=== PATIENT | female | born 1940 | race Caucasian/White ===

== ENCOUNTER 2023-04-26 12:51 | Emergency (ER) | payer MEDICARE, SELFPAY ==
[2023-04-26 12:58] VITALS: BP 202/93
--- NOTE | 2023-04-26 15:12 | ED.GENMED ---
History of Present Illness
<Aparna Sheikh PA-C - Last Filed: 04/26/23 19:35>
General
Chief Complaint: Abdominal Pain
Source: patient
Exam Limitations: none
Time Seen by Provider: 04/26/23 14:40
Nursing documentation reviewed up to this point in time: agreed with
Travel History
Have you had any contact with someone who has COVID-19?: No
Do you have any symptoms of coronavirus? Fever > 100 degrees, chills, cough, shortness of breath, sore throat, loss of taste or smell, muscle aches, or headache?: No
History of Present Illness
History of Present Illness:
This is a 83-year-old female with a past medical history of GERD, gallstones, hypertension, hypothyroidism, recurrent UTIs who presents emergency department today with right upper quadrant pain that radiates to the right upper back for the past 7
days. Patient reports that when it started, she thought that it was nothing but then the pain worsened and she decided to come in today. She states that the pain is intermittent and is worse with movement. She denies chest pain, shortness of
breath, nausea, vomiting, fevers, chills. She is able to eat and drink without difficulty. The pain is not related to eating. She has never had anything like this before. Of note, she is currently being treated for UTI with Macrobid and still
has urinary symptoms. She does see a urologist for recurrent bladder infections and pelvic floor problems, and her urologist did want an ultrasound of the bladder and kidneys.
Past History
<Aparna Sheikh PA-C - Last Filed: 04/26/23 19:35>
Past History
ED Past Medical History: Arrthythmia (a-fib), GERD, Hypothyroidism and Other (UTI, PNA, Sinusitis)
ED Past Surgical History: Gynecological and Other (sinus)
Social History
Tobacco: Non-smoker
Alcohol: None
Drug: None
Living: with family
Review of Systems
<Aparna Sheikh PA-C - Last Filed: 04/26/23 19:35>
Review of Systems
All Other Systems: ROS reviewed and negative except as documented in HPI and ROS
Phy Exam
<Aparna Sheikh PA-C - Last Filed: 04/26/23 19:35>
Physical Exam
Physical Exam:
General: patient is well appearing and in no acute distress
Skin: warm and dry, no rashes or lesions
Cardiac: regular rate and rhythm, no murmurs
Pulm: normal respiratory effort, no wheezes, rales, or rhonci
Abdomen: No abdominal distension. Mild tenderness to palpation of the right upper abdominal quadrant. Negative reynolds's sign.
Musculoskeletal: No tenderness to palpation of the thoracic or lumbar spine.
Course
<ELINA Peña Last Filed: 04/26/23 19:35>
Orders/Labs/Results
Orders:
Orders
04/26/23 15:16
Acetaminophen [Tylenol] 325 mg PO NOW STA
US Abdomen Complete/Upper Urgent
Reason For Exam: Right upper quadrant pain
US Kidneys and US Bladder [US Renal With Bladder] Urgent
Comment:
Reason For Exam: flank pain, UTI symptoms
04/26/23 15:30
Complete Blood Count/With Diff Urgent
Comprehensive Metabolic Panel Urgent
Lipase Urgent
Urinalysis Reflex To Culture Urgent
Date Specimen was Collected: 04/26/23
Time Specimen was Collected: 13:02
Urine Microscopic Reflex Cult Urgent
Urine Culture Urgent
ROC Source: U
Specimen Description:
Date Specimen was Collected: 04/26/23
Time Specimen was Collected: 13:02
Abnormal Lab Results
04/26/23
15:30
MPV 10.7 H fL
(7.4-10.4)
Sodium 134 L mmol/L
(135-145)
Creatinine 0.5 L mg/dL
(0.6-1.0)
Glucose 111 H mg/dl
(70-99)
Urine Nitrite (Reflex) Positive A
(Negative)
Urine Bilirubin 1+ A
(Negative)
Urine Bacteria (Reflex) Few A
(Negative)
04/26/23 15:30
04/26/23 15:30
Vital Signs
Initial and Last Documented VS:
Initial Vital Signs
Temp Pulse Resp BP Pulse Ox
97.6 F 66 22 202/93 98
04/26/23 12:58 04/26/23 12:58 04/26/23 12:58 04/26/23 12:58 04/26/23 12:58
Last Documented Vital Signs
Temp Pulse Resp BP Pulse Ox
97.6 F 66 22 160/68 97
04/26/23 12:58 04/26/23 12:58 04/26/23 12:58 04/26/23 16:48 04/26/23 17:00
<Jorge Al, DO - Last Filed: 04/26/23 15:33>
Orders/Labs/Results
Orders:
Orders
04/26/23 15:16
Acetaminophen [Tylenol] 325 mg PO NOW STA
US Abdomen Complete/Upper Urgent
Reason For Exam: Right upper quadrant pain
US Kidneys and US Bladder [US Renal With Bladder] Urgent
Comment:
Reason For Exam: flank pain, UTI symptoms
04/26/23 15:30
Complete Blood Count/With Diff Urgent
Comprehensive Metabolic Panel Urgent
Lipase Urgent
Urinalysis Reflex To Culture Urgent
Date Specimen was Collected: 04/26/23
Time Specimen was Collected: 13:02
Urine Microscopic Reflex Cult Urgent
Urine Culture Urgent
ROC Source: U
Specimen Description:
Date Specimen was Collected: 04/26/23
Time Specimen was Collected: 13:02
Abnormal Lab Results
04/26/23
15:30
MPV 10.7 H fL
(7.4-10.4)
Sodium 134 L mmol/L
(135-145)
Creatinine 0.5 L mg/dL
(0.6-1.0)
Glucose 111 H mg/dl
(70-99)
Urine Nitrite (Reflex) Positive A
(Negative)
Urine Bilirubin 1+ A
(Negative)
Urine Bacteria (Reflex) Few A
(Negative)
04/26/23 15:30
04/26/23 15:30
Vital Signs
Initial and Last Documented VS:
Initial Vital Signs
Temp Pulse Resp BP Pulse Ox
97.6 F 66 22 202/93 98
04/26/23 12:58 04/26/23 12:58 04/26/23 12:58 04/26/23 12:58 04/26/23 12:58
Last Documented Vital Signs
Temp Pulse Resp BP Pulse Ox
97.6 F 66 22 160/68 97
04/26/23 12:58 04/26/23 12:58 04/26/23 12:58 04/26/23 16:48 04/26/23 17:00
Phillylt;Aparna Sheikh PA-C - Last Filed: 04/26/23 19:35>
MDM/Problems Addressed
Differential Diagnosis Includes:
Differentials include cholecystitis, choledocholithiasis, biliary colic, pyelonephritis, nephrolithiasis
MDM/Problems Addressed:
Right upper quadrant pain, right upper back pain
-------
Will obtain CBC, CMP, urinalysis, and ultrasound studies of the kidneys, bladder,
Chronic conditions affecting care: HTN and Other (GERD, hypothyroid)
Acute Exacerbation and/or Progression of Chronic Illness:
Patient was HTN to upon arrival, patient reports that her BP gets high whenever she goes to the ER or has a doctor's appointment. Patient does take a beta luis to control her BP. On multiple rechecks by me, her BP was systolically less
than 200. Prior to discharge, her BP came down to 160/68. No acute lowering of BP indicated at this time
Acute Exacerbation and/or Progression of Chronic Illness: HTN
<Aparna Sheikh PA-C - Last Filed: 04/26/23 19:35>
*Pulse Oximetry
Patient hypoxic: no
*Critical Care Note
Total Time (30-74mins, 75-104mins- exclusive of procedures): Not Applicable
Data Reviewed
Review of Other/Old Records Reveals: Labs (today, CBC and CMP were unremarkable) and Records (reviewed ED physician documentation from visit in december 2021 for similar symptoms )
Prescriptions/Medications Considered But Not Given:
n/a
Further Testing Considered But Not Given:
considered CT scan however patient is well appearing and not in significant pain
<ELINA Peña Last Filed: 04/26/23 19:35>
Patient Management
Escalation/DeEscalation of care consider admission/obs:
83 y/o female presenting to the ER today with RUQ pain that radiates to the back for the past week. Patient is currently being treated for a UTI with macrobid, on day 3. I was most concerned about cholecystitis in this patient. Her ultrasound
studies did show gallstones but did not show any evidence of cholecystitis, nephrolithiasis, or pyelonephritis. Patient CBC did not reviewed a leukocytosis. She was afebrile here. I do not feel that inpatient management is needed at this time for
suspected pyelonephritis. We will switch patient's antibiotic to keflex to cover for pyelo. Patient is medically stable for discharge.
ED Attending Note
<ELINA Peña Last Filed: 04/26/23 19:35>
-
Portions of this chart may have been created with voice recognition software.� Occasional wrong word or��sound alike� substitutions may have occurred due to the inherent limitations of voice recognition software.
<Jorge Al DO - Last Filed: 04/26/23 15:33>
ED Attending Note
Patient seen and examined by attending physician: Yes
I performed the substantive portion of visit, reviewed & personally made and approve the management plan that is documented in note by myself or JENIFER.: Yes
ED Attending Note:
I have seen and evaluated the patient with a [id number] encounter. I have spoken to the advance practicer provider and involved in the medical history, the physical exam, medical decision making.
Evaluation and management service: agree unless noted differently below.
Results interpretation: agree unless noted differently below.
Focused HPI: 83-year-old female presenting with right upper quadrant pain. Patient is unsure if this is related to known gallstones. She is also unsure if this is related to current UTI. She is on Macrobid currently. She states her urologist
wants an ultrasound done of the kidneys and bladder
Physical exam: Sitting in bed comfortably. She does have point tenderness to right upper quadrant
Medical Decision Making: Will obtain right upper quadrant ultrasound looking for kidney pathology. Will obtain renal ultrasound as well. If urinalysis negative and ultrasound and blood work negative, will obtain CT
Discharge Plan
Departure
Patient Disposition: Home (Routine Discharge)
Date of Disposition: 04/26/23
Time of Disposition: 17:28
Patient with high blood pressure during this ER visit?: Yes
Condition: Good
Discharge Problem:
Pyelonephritis, Gallstones
Instructions: Kidney Infection, Gallstones (DC), Abdominal Pain
Prescriptions:
New
cephalexin 500 mg capsule
500 mg PO BID 10 Days Qty: 20 0RF
No Action
aspirin 325 MG tablet
325 mg PO DAILY
sotalol 80 MG tablet
80 mg PO BID
levothyroxine [Synthroid] 88 MCG tablet
88 mcg PO DAILY
lorazepam 0.5 MG tablet
0.5 mg PO Q4HPRN PRN (Reason: anxiety)
lansoprazole [Prevacid] 30 MG capsule,delayed release(DR/EC)
30 mg PO DAILY
metoprolol tartrate 12.5 MG tablet
12.5 mg PO BID
doxycycline hyclate 100 MG capsule
100 mg PO Q12 Qty: 20 0RF
Referrals:
Jomar De Leon Jr., DO [Family Provider] -
Activity Restrictions/Additional Instructions:
We have sent an antibiotic called cephalexin (Keflex) to your pharmacy. Please take one tablet twice daily for 10 days.
Please return to the emergency department should you experience chest pain, shortness of breath, worsening pain, fevers or chills, intractable vomiting, tounge swelling, lip swelling, or other concerning signs or symptoms.
Please follow up with your PCP and your urologist.
Interventions
Interventions:
*Risk Screen - Suicide Last Done: 04/26/23 18:30
*General Assessment Last Done: 04/26/23 17:00
*Neglect/Abuse Screening Last Done: 04/26/23 17:00
*ED COVID-19 Vaccine History Last Done: 04/26/23 17:00
*Nursing Disposition Last Done: 04/26/23 18:33
MG-Xkgcly-Etoudofkcr Assessment Last Done: 04/26/23 18:31
Discharge Date and Time
Discharge Date/Time: 04/26/23 18:36
[2023-04-26 15:17] VITALS: BMI 34.0
[2023-04-26 15:34] VITALS: BP 165/66
[2023-04-26 15:58] LABS: Urine Albumin Negative (Neg - Trace); Urine Bilirubin 1+ (Negative); Urine Character Clear (Clear); Urine Color Yellow; Urine Glucose Negative (Negative); Urine Ketone Negative (Negative); Urine Leukocyte Negative (Negative); Urine Nitrite Positive (Negative); Urine Occult Blood Negative (Negative); Urine Specific Gravity 1.005 (<1.030); Urine Urobilinogen 1+ (Neg - 1+)
[2023-04-26 15:59] LABS: % Basophils 0.7 % (0-2); % Eosinophils 0.9 % (0-6); % Immature Granulocytes 0.2 % (0-0.5); % Lymphocytes 31.1 % (20.5-51.1); % Monocytes 6.9 % (1.7-9.3); % Neutrophils 60.2 % (42.2-75.2); Absolute Basophils 0.1 10^3/uL (0-0.2); Absolute Eosinophils 0.1 10^3/uL (0-0.7); Absolute Lymphocytes 2.8 10^3/uL (1.2-3.4); Absolute Monocytes 0.6 10^3/uL (0.1-0.6); Absolute Neutrophils 5.5 10^3/uL (1.4-6.5); Hematocrit 39.8 % (37.0-47.0); Hemoglobin 13.3 g/dL (12.0-16.0); Mean Corp Hgb Conc. 33.4 g/dL (33.0-37.0); Mean Corpuscular Hgb 29.1 pg (27.0-31.0); Mean Corpuscular Volume 87.1 fL (81.0-99.0); Mean Platelet Volume 10.7 fL (7.4-10.4); Nucleated Red Blood Cells % 0 %; Platelet Count 243 10^3/uL (130-400); Red Blood Cell Count 4.57 10^6/uL (4.20-5.40); Red Cell Dist. Width 13.3 % (11.5-14.5); White Blood Cell Count 9.1 10^3/uL (4.8-10.8)
[2023-04-26 16:00] VITALS: BP 179/63
[2023-04-26 16:12] LABS: Urine Urothelial Cell 0-2 /LPF (FEW)
[2023-04-26 16:13] LABS: Urine Bacteria Few (Negative); Urine Red Blood Cell 0-2 /HPF (0-2); Urine White Cell 0-2 /HPF (0-5)
[2023-04-26 16:14] LABS: ALT (SGPT) 20 U/L (0-35); AST (SGOT) 23 U/L (14-36); Albumin 4.1 g/dl (3.5-5.0); Alkaline Phosphatase 78 U/L (38-126); Blood Urea Nitrogen 13 mg/dl (7-17); Calcium 9.4 mg/dl (8.4-10.2); Carbon Dioxide 29 mmol/L (22-30); Chloride 102 mmol/L (98-107); Estimated Creatinine Clearance 74 ml/min; Glucose 111 mg/dl (70-99); Lipase 110 U/L (23-300); Potassium 4.5 mmol/L (3.5-5.1); Sodium 134 mmol/L (135-145); Total Bilirubin 0.4 mg/dl (0.2-1.3); Total Protein 7.3 g/dl (6.3-8.2); eGFR > 60.00
[2023-04-26 16:48] VITALS: BP 160/68
== END 2023-04-26 18:36 | disposition home or self-care (01) ==
LOC: EMR 12:51
PROVIDERS: Emergency Medicine; EMERGENCY PHYSICIAN Student in an Organized Health Care Education/Training Program; FAMILY PHYSICIAN Family Medicine
DX: N10 Acute pyelonephritis (principal); K80.20 Calculus of gallbladder without cholecystitis without obstruction; M54.6 Pain in thoracic spine; K21.9 Gastro-esophageal reflux disease without esophagitis; E03.9 Hypothyroidism, unspecified; I48.91 Unspecified atrial fibrillation; I10 Essential (primary) hypertension; Z79.82 Long term (current) use of aspirin; Z85.820 Personal history of malignant melanoma of skin; Z87.440 Personal history of urinary (tract) infections; Z88.1 Allergy status to other antibiotic agents; Z88.5 Allergy status to narcotic agent; Z88.8 Allergy status to other drugs, medicaments and biological substances
CPT/HCPCS: 99284; 76700; 76770; 80053; 81003; 81015; 83690; 85025; 87086